=== PATIENT | male | born 1950 | race Hispanic/Latino ===

== ENCOUNTER 2024-08-16 19:06 | Emergency (ER) | payer OTHER ==
[2024-08-16] MEDS ORDERED: Ondansetron ODT 4 MG TAB ONE (19:15)
[2024-08-16 20:00] LABS: #Eosinophils 0.05 10x3/uL (0.0-0.5); #Monocytes 0.65 10x3/uL (0.0-1.1); #Neutrophils 3.06 10x3/uL (1.5-8.4); %Eosinophils 1.1 % (0.0-6.0); %Lymphocytes 19.3 % (18.0-47.0); %Monocytes 13.9 % (0.0-10.0); %Neutrophils 65.5 % (40.0-75.0); Hematocrit 38.7 % (38.8-50.0); Hemoglobin 13.6 g/dL (13.5-17.5); Mean Corpuscular HGB CONC 35.1 g/dL (32.0-36.0); Mean Corpuscular Volume 88.2 fL (81.2-95.1); Mean Platelet Volume 10.8 fL (7.4-10.4); Platelet Count 179 10x3/uL (150-450); RBC Distribution Width 13.6 % (11.5-14.5); Red Blood Cell (RBC) Count 4.39 10x6/uL (4.32-5.72); White Blood Cell (WBC) Count 4.7 10x3/uL (3.5-10.5)
[2024-08-16 20:17] LABS: ALT (SGPT) 43 U/L (8-55); AST (SGOT) 40 U/L (5-34); Albumin 3.7 g/dL (3.4-4.8); Alkaline Phosphatase 97 U/L (40-110); Anion Gap 13 mmol/L (10-20); BUN (Urea Nitrogen) 19 mg/dL (8.4-25.7); Bilirubin, Total 0.3 mg/dL (0.2-1.2); Calc. Creatinine Clearance 0 mL/min (70-130); Calcium 8.3 mg/dL (7.8-10.44); Carbon Dioxide 30 mmol/L (23-31); Chloride 98 mmol/L (98-107); Estimated GFR 94; Glucose 132 mg/dL (83-110); Lipase 13 U/L (8-78); Potassium 2.9 mmol/L (3.5-5.1); Protein, Total 6.7 g/dL (5.8-8.1); Sodium 138 mmol/L (136-145)
[2024-08-16 20:23] LABS: Troponin I 0.022 ng/mL (< 0.028)
[2024-08-16] MEDS ORDERED: Potassium Chloride 20 MEQ TAB ONE (20:38)
[2024-08-16 21:48] LABS: Troponin I 0.023 ng/mL (< 0.028)
== END 2024-08-16 22:53 | disposition home or self-care (01) ==
LOC: CSHERS 19:06 → EEVIPCON 19:06 → CSHERS 22:53
DX: R07.9 Chest pain, unspecified (principal); R11.10 Vomiting, unspecified; I25.10 Atherosclerotic heart disease of native coronary artery without angina pectoris; J44.9 Chronic obstructive pulmonary disease, unspecified; Z79.82 Long term (current) use of aspirin; Z79.899 Other long term (current) drug therapy
CPT/HCPCS: 71045; 80053; 83690; 84484; 85025; 93005; Q0162